=== PATIENT | male | born 1955 | race Caucasian/White ===

== ENCOUNTER 2016-10-26 09:45 | Emergency (ER) | payer OTHER ==
[~2016-10-26] VITALS: Ht 185.4 cm; Wt 88.5 kg
[2016-10-26 09:52] VITALS: BP 139/87
--- NOTE | 2016-10-26 10:09 | ED GENERAL ADULT ---
See Addendum History of Present Illness General Chief Complaint: Lower Extremity Injury Stated Complaint: "PER LT ANKLE INJURY" Source: patient Exam Limitations: no limitations Vital Signs & Intake/Output Vital Signs & Intake/Output Vital Signs Date Time Temp Pulse Resp B/P B/P Pulse O2 O2 Flow FiO2 Mean Ox Delivery Rate 10/27 951 98.3 70 18 139/87 96 Room Air Allergies Coded Allergies: No Known Allergies (10/26/16) Reconcile Medications Ibuprofen 600 MG TABLET 1 TAB PO TID PRN pain with food Triage Note: 61 Y/O MALE C/O L ANKLE PAIN AND SWELLING SINCE SATURDAY NIGHT. 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 STATES SWELLING IS WORSE TODAY. HAS BEEN USING CRUTCHES TODAY WITH SOME RELIEF BUT HAS BEEN AMBULATING THROUGHOUT THE WEEK. TOOK 200MG ADVIL THIS AM WITH NO RELIEF, 0700. Triage Nurses Notes Reviewed? yes Onset: Abrupt Duration: day(s): Timing: recent history HPI: 10/26/16 10 AM 61-year-old male presents to the emergency department complaining of left foot and ankle pain. According to the patient he was in his garage on Saturday and hopped over something landing on his left foot. Since that time he's had significant left ankle pain and swelling. The onset of the symptoms have been abrupt, the duration has been the past 48 hours, the severity is significant; as his symptoms required him to come to the emergency department for care. He denies any other associated injuries. Past History Travel History Traveled to [place] past 21 day No Medical History Any Pertinent Medical History? see below for history Neurological: NONE EENT: NONE Cardiovascular: hyperlipidemia Respiratory: NONE Gastrointestinal: NONE Hepatic: NONE Renal: NONE Musculoskeletal: NONE Psychiatric: NONE Endocrine: NONE Blood Disorders: NONE Cancer(s): NONE DIESEL TECHNICIAN/Reproductive: NONE Surgical History Surgical History: non-contributory Psychosocial History What is your primary language Slovak Tobacco Use: Never used Family History Hx Contributory? No Review of Systems Review of Systems Constitutional: Denies: fever. EENTM: Reports: no symptoms. Respiratory: Reports: no symptoms. Cardiovascular: Reports: no symptoms. GI: Reports: no symptoms. Genitourinary: Reports: no symptoms. Musculoskeletal: Reports: see HPI. Skin: Reports: no symptoms. Neurological/Psychological: Reports: no symptoms. Hematologic/Endocrine: Reports: no symptoms. Immunologic/Allergic: Reports: no symptoms. Physical Exam Physical Exam General Appearance: well developed/nourished, alert, awake, mild distress Head: atraumatic, normal appearance Eyes: Bilateral: normal appearance. Ears, Nose, Throat: normal ENT inspection Neck: normal inspection, full range of motion Respiratory: normal breath sounds, chest non-tender, no respiratory distress Cardiovascular: regular rate/rhythm Peripheral Pulses: 4+ tibialis posterior (L) Back: normal range of motion Extremities: swelling, tenderness Neurologic/Psych: no motor/sensory deficits, awake, alert, oriented x 3 Skin: intact, normal color, warm/dry Core Measures ACS in differential dx? No CVA/TIA Diagnosis: No Severe Sepsis Present: No Septic Shock Present: No Progress Differential Diagnoses I considered the following diagnoses in my evaluation of the patient: [Ankle sprain, ankle fracture, contusion,] Plan of Care: Orders Procedure Date/time Status Durable Medical Equipment 10/26 1040 Active Initial ED EKG: none Departure Departure Disposition: STILL A PATIENT Condition: Stable Clinical Impression Primary Impression: Ankle sprain Referrals: MARY GREGORIO MD (PCP/Family) Departure Forms: Customer Survey General Discharge Information Prescriptions: Current Visit Scripts Ibuprofen 1 TAB PO TID PRN pain #30 TAB with food Comments The patient has significant tenderness to the inferior aspect of the lateral malleolus. There is no ligament instability. X-ray of the left ankle and foot were reviewed personally with the radiologist. No fracture was identified. The patient wants to follow up with Ronan Lemus MD. I reviewed the x-ray and physical findings with Dr. Lemus. He agrees with the plan of nonweightbearing initially, then weightbearing as tolerated, and use of the ankle stirrup. They will follow-up with him on Saturday should he continue to have pain after a period of immobilization and nonweightbearing. He will take ibuprofen as needed for pain. Critical Care Note Critical Care Note Critical Care Time: non-applicable
--- NOTE | 2016-10-26 10:33 | RADIOLOGY REPORT ---
EXAMINATION: LEFT ANKLE. CLINICAL INFORMATION: Left ankle pain. COMPARISON: None TECHNIQUE: 3 views FINDINGS: Bone mineral density is maintained without evidence of fracture or dislocation. No focal osseous lesions are seen. Joint space is maintained without productive or erosive changes. IMPRESSION: No fracture or dislocation is identified.
[2016-10-26] MEDS ORDERED: IBUPROFEN600 M1 PO (10:43)
== END 2016-10-26 11:04 ==
LOC: ERH 09:45
DX: S93.402A Sprain of unspecified ligament of left ankle, initial encounter (principal); X58.XXXA Exposure to other specified factors, initial encounter; Y92.015 Private garage of single-family (private) house as the place of occurrence of the external cause; Y93.9 Activity, unspecified
CPT/HCPCS: 73610-LT; 73630-LT